=== PATIENT | male | born 2000 | race Caucasian/White ===

== ENCOUNTER 2021-02-28 12:11 | Emergency (ER) | payer BC ==
[~2021-02-28] VITALS: Ht 180.3 cm; Wt 66.7 kg
[2021-02-28 12:17] VITALS: TEMP 98.3
[2021-02-28 12:34] LABS: BASO % 0.2 % (0.0-2.0); EOS # 0.1 K/mm3 (0.0-0.7); EOS % 0.4 % (0-4.0); GRAN # 11.3 K/mm3 (1.4-6.5); GRAN % 82.5 % (42.2-75.2); HEMATOCRIT 43.7 % (36.0-47.0); HEMOGLOBIN 14.9 g/dl (12.5-16.1); LYMPH # 1.7 K/mm3 (1.2-3.4); LYMPH % 12.3 % (20.0-51.0); MEAN CELL VOLUME 91 fl (80.0-95.0); MEAN CORPUSCULAR HEMOGLOBIN 31 pg (26.0-32.0); MEAN CORPUSCULAR HGB CONC 34 g/dl (33.0-37.0); MEAN PLATELET VOLUME 10.4 fl (7.4-10.4); MONO # 0.6 K/mm3 (0.1-0.6); MONO % 4.3 % (1.7-9.3); PLATELET COUNT 325 K/mm3 (130-400); REDCELL DISTRIBUTION WIDTH-CV 13.1 % (11.5-14.5)
[2021-02-28 13:01] LABS: ALANINE AMINOTRANSFERASE 58 U/L (0-55); ALBUMIN 3.8 gm/dL (3.5-5.0); ALKALINE PHOSPHATASE 84 U/L (40-150); ANION GAP 10 mmol/L (7-16); AST,SGOT 38 U/L (5-34); BILIRUBIN,TOTAL 0.7 mg/dL (0.2-1.2); BLOOD UREA NITROGEN 8 mg/dL (9-21); CALCIUM 9.1 mg/dL (8.4-10.2); CARBON DIOXIDE 23 mmol/L (22-29); CHLORIDE 107 mmol/L (98-107); CREATININE, serum 0.78 mg/dL (0.72-1.25); GLUCOSE 122 mg/dL (70-99); POTASSIUM 4.1 mmol/L (3.5-4.5); SODIUM 140 mmol/L (136-145)
[2021-02-28 13:02] LABS: LIPASE < 4 U/L (8-78)
[2021-02-28 15:51] VITALS: BP 111/81; PULSE 62
== END 2021-02-28 15:58 | disposition home or self-care (01) ==
LOC: COL.ER 12:11
PROVIDERS: Physician Assistant
DX: K52.9 Noninfective gastroenteritis and colitis, unspecified (principal); E84.9 Cystic fibrosis, unspecified
CPT/HCPCS: J7030; Q9967

== ENCOUNTER 2022-05-19 08:12 | Outpatient (CLI) | payer BC ==
[~2022-05-19] VITALS: Ht 180.3 cm; Wt 68.0 kg
[2022-05-19] MEDS ORDERED: TRIKAFTA 100-51 EACH PO (08:47)
[2022-05-19] MEDS ORDERED: CREON 120000 U-1 ECC PO (08:58)
[2022-05-19 09:30] VITALS: BP 117/71; PULSE 63; TEMP 98.1
[2022-05-19 09:31] LABS: BASO # 0.1 K/mm3 (0.0-0.2); BASO % 0.8 % (0.0-2.0); EOS # 0.1 K/mm3 (0.0-0.7); EOS % 1.5 % (0.0-4.0); GRAN # 4.5 K/mm3 (1.4-6.5); GRAN % 59.4 % (42.2-75.2); HEMATOCRIT 41.9 % (42.0-52.0); HEMOGLOBIN 14.7 g/dl (13.5-18.0); LYMPH # 2.3 K/mm3 (1.2-3.4); LYMPH % 30.1 % (20.0-51.0); MEAN CELL VOLUME 90 fl (80.0-100.0); MEAN CORPUSCULAR HEMOGLOBIN 32 pg (27-31); MEAN CORPUSCULAR HGB CONC 35 g/dl (33.0-37.0); MEAN PLATELET VOLUME 10.8 fl (7.4-10.4); MONO # 0.6 K/mm3 (0.1-0.6); MONO % 8.1 % (1.7-9.3); PLATELET COUNT 214 K/mm3 (130-400); RED BLOOD COUNT 4.65 M/mm3 (4.20-5.60); REDCELL DISTRIBUTION WIDTH-CV 13.1 % (11.5-14.5)
[2022-05-19 09:33] LABS: INR 1.2 (0.8-3.0); PROTHROMBIN TIME 14.2 SECONDS (9.7-12.8)
[2022-05-19 09:43] LABS: ALBUMIN 4.1 gm/dL (3.5-5.0); BILIRUBIN,TOTAL 1.2 mg/dL (0.2-1.2); CALCIUM 9.1 mg/dL (8.4-10.2); CREATININE, serum 0.7 mg/dL (0.72-1.25); POTASSIUM 3.9 mmol/L (3.5-4.5); TOTAL PROTEIN 6.9 gm/dL (6.2-8.1)
--- NOTE | 2022-05-19 12:00 | NUR ---
lab draw from port for 2 hr glucose tolerance test at 1150. Port flushed per protocol after this draw, port deaccessed. no dressing per patient. appointment made for next port flush in 1 month. 06/16/22 at 0830. amb to exit with no problem.
[2022-05-23] LABS: VITAMIN E 4.7 mg/L (())
== END 2022-05-19 15:55 | disposition home or self-care (01) ==
LOC: EUO 08:12
DX: E84.0 Cystic fibrosis with pulmonary manifestations (principal)
CPT/HCPCS: J1644